=== PATIENT | female | born 1950 | race Native Hawaiian/Other Pacific Islander ===

== ENCOUNTER 2017-07-18 10:13 | Outpatient (CLI) | payer OTHER, MEDICARE ==
[~2017-07-18 10:13] MED LIST: ALBU90AE13 INH; ANAS1TAB PO; BUDE1AER5 INH; CARV6.25 PO; CIPRO HC OT; CLON0.5T36 PO; DEXL60CA4 PO; ESCITALOPRAM10 MG PO; FLUTMIS14 INH; HUMULIN R1 M1 SC; HYDR25TA60 PO; INSUINJ32 SC; LANTUS100 MG/ML SC; LYRICA200 MG PO; METF500T PO; METO10TA26 PO; PANT40TA PO; PENICILLN VK500 MG PO; SIMV10TA PO; TIOTCAP2 INH; TRIATAB14 PO; UNITH DIRECT50 MCG PO; Z-PAK PO
[2017-07-18 10:39] LABS: PLATELET COUNT 333 K/uL (152-353)
== END 2017-07-18 19:20 | disposition home or self-care (01) ==
LOC: LABW 10:13
PROVIDERS: Surgery
DX: E53.8 Deficiency of other specified B group vitamins (principal); E61.1 Iron deficiency; E87.8 Other disorders of electrolyte and fluid balance, not elsewhere classified; E61.0 Copper deficiency; E55.9 Vitamin D deficiency, unspecified; E51.8 Other manifestations of thiamine deficiency; R94.6 Abnormal results of thyroid function studies
CPT/HCPCS: 36415; 80053; 82306; 82607; 82728; 82747; 83970; 84425; 84443; 85027

== ENCOUNTER 2017-11-27 12:13 | Day surgery (SDC) | payer OTHER, MEDICARE ==
[2017-11-27 13:02] LABS: PLATELET COUNT 339 K/uL (152-353)
[2017-11-27 13:06] LABS: POTASSIUM 3.6 mmol/L (3.6-5.2)
== END 2017-11-27 16:15 | disposition home or self-care (01) ==
LOC: OR 12:13
PROVIDERS: Internal Medicine Gastroenterology
PROC: 0DB68ZZ Excision of Stomach, Via Natural or Artificial Opening Endoscopic (ICD-10-PCS; principal; 2017-11-27)
PROC: 0DB88ZZ Excision of Small Intestine, Via Natural or Artificial Opening Endoscopic (ICD-10-PCS; 2017-11-27)
PROC: 0D758ZZ Dilation of Esophagus, Via Natural or Artificial Opening Endoscopic (ICD-10-PCS; 2017-11-27)
DX: K29.50 Unspecified chronic gastritis without bleeding (principal); K25.9 Gastric ulcer, unspecified as acute or chronic, without hemorrhage or perforation; K21.0 Gastro-esophageal reflux disease with esophagitis; K22.4 Dyskinesia of esophagus; K22.2 Esophageal obstruction; R10.13 Epigastric pain; R13.19 Other dysphagia; R19.7 Diarrhea, unspecified
CPT/HCPCS: 80053; 85027; J2001; J2250; J2704

== ENCOUNTER 2018-06-28 22:56 | Emergency (ER) | payer OTHER, MEDICARE ==
[~2018-06-28] VITALS: Ht 165.1 cm; Wt 72.6 kg
[2018-06-28 23:15] VITALS: TEMP 98.1
[2018-06-29 01:40] VITALS: BP 116/60
== END 2018-06-29 01:44 | disposition home or self-care (01) ==
LOC: ED 22:56
DX: R10.84 Generalized abdominal pain (principal)
CPT/HCPCS: 96360; 96375; 96376; 99284; J2270; J2405

== ENCOUNTER 2019-03-04 16:56 | Outpatient (CLI) | payer OTHER, MEDICARE | END 2019-03-04 16:59 | disposition short-term general hospital (02) | LOC: AMB 16:56 | DX: R55 Syncope and collapse (principal); R41.82 Altered mental status, unspecified | CPT/HCPCS: A0425; A0427 ==

== ENCOUNTER 2019-03-04 17:10 | Emergency (ER) | payer OTHER, MEDICARE ==
[~2019-03-04] VITALS: Ht 165.1 cm; Wt 72.6 kg
[2019-03-04 17:40] LABS: PLATELET COUNT 362 K/uL (152-353)
[2019-03-04 17:54] LABS: SODIUM 139 mmol/L (136-145)
[2019-03-04 18:25] VITALS: BP 96/43; TEMP 97.7
== END 2019-03-04 19:25 | disposition short-term general hospital (02) ==
LOC: ED 17:10
PROVIDERS: Emergency Medicine
DX: I44.2 Atrioventricular block, complete (principal); R00.1 Bradycardia, unspecified; I21.09 ST elevation (STEMI) myocardial infarction involving other coronary artery of anterior wall
CPT/HCPCS: 36600; 80053; 82550; 82553; 82805; 84484; 85027; 93005; 96360; 96366; 96375; 99285; J0171; J0461; J0610; J1265; J1644; J2250; J2405; J3490